=== PATIENT | female | born 1990 | race Caucasian/White ===

== ENCOUNTER 2017-09-29 06:00 | Emergency (ER) | payer BC ==
[2017-09-29 06:14] VITALS: TEMP 97.7
--- NOTE | 2017-09-29 06:47 | ED ---
General Adult HPI - General Chief complaint: Psychiatric Symptoms Stated complaint: Suicidal Time Seen by Provider: 09/29/17 06:18 Source: patient, EMS, RN notes reviewed Mode of arrival: EMS Limitations: no limitations - History of Present Illness Initial comments: Patient 27-year-old female presented emergency room today by EMS, with chief complaint of suicidal ideation. Patient does admit that she did drink a approximately shot glass worth amount of bleach earlier this morning. She states she followed by water. She states she threw up. Patient does admit that she got into an argument with her boyfriend last night. Patient does admit that she's had some thoughts of hurting herself but she called EMS. Patient denies any physical complaints at this time. Patient denies any recent fever, chills, shortness of breath, chest pain, back pain, abdominal pain, numbness or tingling, headaches or visual changes, or any other complaints. - Related Data Home Medications Medication Instructions Recorded Confirmed No Known Home Medications 09/29/17 09/29/17 Allergies Allergy/AdvReac Type Severity Reaction Status Date / Time No Known Allergies Allergy Verified 09/29/17 08:14 Review of Systems ROS Statement: Those systems with pertinent positive or pertinent negative responses have been documented in the HPI. ROS Other: All systems not noted in ROS Statement are negative. Past Medical History Past Medical History: No Reported History History of Any Multi-Drug Resistant Organisms: None Reported Past Surgical History: No Surgical Hx Reported Past Psychological History: Anxiety, Depression Smoking Status: Current some day smoker Past Alcohol Use History: Occasional Past Drug Use History: None Reported General Exam Limitations: no limitations General appearance: alert, in no apparent distress Head exam: Present: atraumatic, normocephalic, normal inspection Eye exam: Present: normal appearance, PERRL, EOMI. Absent: scleral icterus, conjunctival injection, periorbital swelling ENT exam: Present: normal exam, mucous membranes moist Neck exam: Present: normal inspection. Absent: tenderness, meningismus Respiratory exam: Present: normal lung sounds bilaterally. Absent: respiratory distress, wheezes, rales, rhonchi, stridor Cardiovascular Exam: Present: regular rate, normal rhythm, normal heart sounds. Absent: systolic murmur, diastolic murmur, rubs, gallop, clicks GI/Abdominal exam: Present: soft. Absent: distended, tenderness, guarding, rebound, rigid Back exam: Present: normal inspection, full ROM Neurological exam: Present: alert, oriented X3, CN II-XII intact Psychiatric exam: Present: normal affect, normal mood Skin exam: Present: warm, dry, intact, normal color. Absent: rash Course Vital Signs 09/29/17 09/29/17 06:11 07:12 Temperature 97.7 F Pulse Rate 116 H 100 Respiratory 18 16 Rate Blood Pressure 145/85 124/65 O2 Sat by Pulse 96 97 Oximetry Medical Decision Making - Medical Decision Making Patient has been observed here in the emergency room. She denies any complaints currently. Patient was seen by mental health. They state the patient is at this time states that she does not know why she did this after this morning. She states she has no intentions of hurting herself. She states she has 2 small children at home. Patient contracts for safety. Psychiatrist since the patient is okay to go home and follow-up rash she has no intentions of hurting herself. Patient is advised return for any other concerns. Disposition Clinical Impression: Depression Disposition: HOME SELF-CARE Condition: Good Instructions: Depression (ED) Additional Instructions: Please follow-up with community mental health as discussed. Please return to emergency room if the symptoms increase or worsen or for any other concerns. Is patient prescribed a controlled substance at d/c from ED?: No Referrals: Anahy Galvez MD [Primary Care Provider] - 1-2 days Time of Disposition: 11:45
[2017-09-29 11:57] VITALS: BP 120/76; PULSE 83; RESP 18
== END 2017-09-29 11:57 | disposition home or self-care (01) ==
LOC: EC 06:00 → SUPCPDRO 06:00 → EC 11:57
DX: F32.9 Major depressive disorder, single episode, unspecified (principal); R45.851 Suicidal ideations; F17.200 Nicotine dependence, unspecified, uncomplicated
CPT/HCPCS: 82075; 99285